=== PATIENT | female | born 1940 | race Caucasian/White ===

== ENCOUNTER 2022-06-24 20:06 | Inpatient (IN) | payer MEDICARE ==
[~2022-06-24] VITALS: Ht 157.5 cm; Wt 73.0 kg
--- NOTE | 2022-06-24 20:30 | NUR ---
TO ER BED 2. [id number]. L KNEE PAIN S/P TRIP AND FELL. RR EVEN AND NONLABORED. CONNECTED TO MONITOR. AWAITING MD VILLANUEVA
--- NOTE | 2022-06-24 22:07 | NUR ---
TOWER OPERATOR AT PT'S BEDSIDE
--- NOTE | 2022-06-24 22:10 | NUR ---
IV LINE ESTABLISHED, [id number]
--- NOTE | 2022-06-24 22:10 | NUR ---
BLOOD COLLECTED AND SENT TO LAB
--- NOTE | 2022-06-24 22:11 | NUR ---
COVID SWAB COLLECTED
[2022-06-24 22:22] LABS: BASOPHILS % (AUTO) 0.1 % (0.0-2.0); EOSINOPHILS % (AUTO) 0.4 % (0.0-6.0); HEMATOCRIT 42 % (33-45); HEMOGLOBIN 14.1 g/dL (11.5-14.8); LYMPHOCYTES # (AUTO) 1.4 K/uL (0.8-4.8); LYMPHOCYTES % (AUTO) 9.1 % (20.0-44.0); MEAN CORPUSCULAR HGB CONC 34 g/dl (31.0-36.0); MEAN CORPUSCULAR VOLUME 87 fL (82-100); MONOCYTES # (AUTO) 1.3 K/uL (0.1-1.30); MONOCYTES % (AUTO) 8.4 % (2.0-12.0); NEUTROPHILS # (AUTO) 12.9 K/uL (1.8-8.9); PLATELET COUNT (AUTO) 284 K/uL (150-450); RED BLOOD CELL COUNT(AUTO) 4.83 MIL/uL (4.0-5.2); WHITE BLOOD COUNT (AUTO) 15.7 K/uL (4.3-11.0)
[2022-06-24 22:46] LABS: CREATININE 0.9 mg/dL (0.6-1.3); POTASSIUM 3.1 mmol/L (3.5-5.1)
--- NOTE | 2022-06-24 23:18 | NUR ---
PT SEEN BY LEIF GREEN NP
[2022-06-24] MEDS ORDERED: ONDANSETRON HCL/PF 4 MG/2 ML VIAL IVP PRN (23:30)
[2022-06-24] MEDS ORDERED: Z GUARD REMEDY 4 OZ OINT TP PRN (23:30)
[2022-06-24] MEDS ORDERED: POTASSIUM CHLORIDE 20 MEQ TAB.PRT.SR PO ONE (23:30)
[2022-06-24] MEDS ORDERED: MAG HYDROX/AL HYDROX/SIMETH 30 ML UDC PO PRN (23:30)
[2022-06-24] MEDS ORDERED: HYDROCODONE/APAP 5/325MG TABLET PO PRN (23:30)
[2022-06-24] MEDS ORDERED: MORPHINE SULFATE INJ 2 MG/ML DISP.SYRIN IV PRN (23:30)
[2022-06-24] MEDS ORDERED: MAGNESIUM HYDROXIDE 30 ML UDC PO PRN (23:30)
[2022-06-24] MEDS ORDERED: ACETAMINOPHEN 325 MG TABLET PO PRN (23:30)
[2022-06-25] MEDS ORDERED: POTASSIUM CHLORIDE 20 MEQ TAB.PRT.SR PO ONE ×2 (00:26→22:42)
[2022-06-25] MEDS ORDERED: VANCOMYCIN 1 GM VIAL ONE (00:26)
[2022-06-25] MEDS ORDERED: ENOXAPARIN SODIUM 40 MG/0.4 ML DISP.SYRIN SQ ONE (00:26)
[2022-06-25] MEDS ORDERED: MORPHINE SULFATE INJ 2 MG/ML DISP.SYRIN ONE (00:26)
[2022-06-25] MEDS: ENOXAPARIN SODIUM 40 MG/0.4 ML DISP.SYRIN SQ SCH ×2 (00:55→21:01)
[2022-06-25] MEDS ORDERED: VANCOMYCIN 1.25 GM in IV D5W 250 ML IV ONE (01:00)
--- NOTE | 2022-06-25 02:08 | NUR ---
REPORT GIVEN TO SUMEET SCHNEIDER FOR JAN
[2022-06-25 03:15] VITALS: BP 139/88
--- NOTE | 2022-06-25 03:15 | NUR ---
MS RN OPENING NOTE RECEIVED PATIENT FROM ER VIA GURNEY. PATIENT IS AWAKE, ALERT AND ORIENTED X 4, VERBALLY RESPONSIVE. VITAL SIGNS TAKEN AND RECORDED FOLLOWS: T 98.3, AR 104, RR 18, O2 SAT 96%, BP 139/88 MM HG. BREATHING EVEN AND NONLABORED. ON ROOM AIR; TOLERATING WELL. IN NO ACUTE DISTRESS. WITH IV ACCESS ON RIGHT ANTECUBITAL 20g: PATENT, INTACT AND SALINE LOCKED. ABLE TO MAKE NEEDS KNOWN. ALL PERSONAL BELONGINGS CHECKED AND INVENTORY DONE. ORIENTED TO STAFF, ROOM AND UNIT. SAFETY MEASURES IMPLEMENTED: CALL LIGHT AND TABLE WITHIN REACH, SIDE RAILS UP X 2, BED IN LOWEST LOCKED POSITION. WILL CONTINUE TO MONITOR
--- NOTE | 2022-06-25 03:34 | NUR ---
RN NOTE PATIENT C/O PAIN ON LEFT KNEE WITH PAIN SCALE 10/10. PRN MORPHINE 1 MG GIVEN IVP ORDERED. WILL CONTINUE TO MONITOR AND REASSESS PT.
--- NOTE | 2022-06-25 07:10 | NUR ---
MS RN CLOSING NOTE PATIENT IN BED; AWAKE, A/O X 4, VERBALLY RESPONSIVE. BREATHING EVEN AND NONLABORED. ON ROOM AIR; WELL TOLERATED. IN NO APPARENT DISTRESS. WITH IV ACCESS ON RIGHT AC 20g: PATENT, INTACT AND SALINE LOCKED. ALL NEEDS ATTENDED. ALL DUE MED GIVEN ORDERED. SAFETY MEASURES MAINTAINED: CALL LIGHT AND TABLE WITHIN REACH, SIDE RAILS UP X 2, BED IN LOWEST LOCKED POSITION. ENDORSED TO MORNING SHIFT FOR JAN.
--- NOTE | 2022-06-25 07:20 | NUR ---
MS RN OPENING NOTES: RECEIVED PT IN BED AWAKE, ALERT AND ORIENTED X 4 AND ABLE TO VERBALIZED NEEDS. PT VERBALIZED BEING ANXIOUS FOR NOT DOING ANYTHING. NO SOB OR CARDIAC DISTRESS NOTED, DENIES ANY PAIN AT THIS TIME. IV ACCESS ON RAC G 20 PATENT INTACT AND SALINE LOCKED. SAFETY PRECAUTIONS MAINTAINED: BED LOCKED AND IN LOWEST POSITION. SIDE RAILS UP X 2. CALL LIGHT IN EASY REACH FOR HELP. WILL MONITOR PT ACCORDINGLY.
[2022-06-25 08:00] VITALS: BP 143/71
[2022-06-25] MEDS ORDERED: AMPI500C11 PO (08:35)
[2022-06-25] MEDS ORDERED: FAMO20TA8 PO (08:35)
[2022-06-25] MEDS ORDERED: CIPR500T5 PO (08:35)
[2022-06-25] MEDS ORDERED: AMLO2.5T4 PO (08:35)
[2022-06-25] MEDS ORDERED: ALLO100T PO (08:35)
[2022-06-25] MEDS ORDERED: MULT-1181 PO (08:36)
[2022-06-25] MEDS ORDERED: HYDR-3976 PO (08:36)
[2022-06-25] MEDS ORDERED: INUL1TAB4 PO (08:36)
[2022-06-25] MEDS: PANTOPRAZOLE 40 MG TABLET.DR PO SCH (08:44)
[2022-06-25 09:10] LABS: BASOPHILS % (AUTO) 0.2 % (0.0-2.0); EOSINOPHILS % (AUTO) 0.1 % (0.0-6.0); HEMATOCRIT 41 % (33-45); HEMOGLOBIN 13.6 g/dL (11.5-14.8); LYMPHOCYTES # (AUTO) 0.8 K/uL (0.8-4.8); LYMPHOCYTES % (AUTO) 6.4 % (20.0-44.0); MEAN CORPUSCULAR HGB CONC 33 g/dl (31.0-36.0); MEAN CORPUSCULAR VOLUME 88 fL (82-100); MONOCYTES # (AUTO) 1.3 K/uL (0.1-1.30); MONOCYTES % (AUTO) 10.2 % (2.0-12.0); NEUTROPHILS # (AUTO) 10.4 K/uL (1.8-8.9); NEUTROPHILS % (AUTO) 83.1 % (43.0-81.0); PLATELET COUNT (AUTO) 278 K/uL (150-450); RED BLOOD CELL COUNT(AUTO) 4.69 MIL/uL (4.0-5.2); WHITE BLOOD COUNT (AUTO) 12.5 K/uL (4.3-11.0)
[2022-06-25 09:50] LABS: CALCIUM, SERUM 8.6 mg/dL (8.5-10.1); CARBON DIOXIDE 29 mmol/L (21-32); CHLORIDE 104 mmol/L (98-107); CREATININE 0.7 mg/dL (0.6-1.3); GLUCOSE 130 mg/dL (74-106); PHOSPHORUS 3.1 mg/dL (2.5-4.9); SODIUM SERUM 141 mmol/L (136-145); UREA NITROGEN, BLOOD 8 mg/dL (7-18)
[2022-06-25 09:59] LABS: THYROID STIMULATING HORMONE 1.086 uIU/mL (0.358-3.74)
--- NOTE | 2022-06-25 10:00 | NUR ---
RN NOTES: INFORMED PHARMACY ABOUT CRITICAL LABS 3.0 POTASSIUM.
--- NOTE | 2022-06-25 14:09 | NUR ---
RN NOTES: DR COLEY ORDERED IV NS @60ML/HR AND REPEAT LACTIC ACID IN AM. ORDERS NOTED AND CARRIED OUT.
[2022-06-25 16:00] VITALS: BP 126/66
--- NOTE | 2022-06-25 18:40 | NUR ---
RN NOTES: CALLED PHARMACY PT'S POTASSIUM LEVEL 3.0, SPOKE TO ABEL 2ND TIME.
--- NOTE | 2022-06-25 18:48 | NUR ---
MS RN CLOSING NOTES: PATIENT IN BED AWAKE, ALERT AND ORIENTED X 4 AND ABLE TO VERBALIZED NEEDS. NO SOB OR CARDIAC DISTRESS NOTED, ON ROOM AIR AND TOLERATING WELL. IV ACCESS ON RFA G 20 PATENT,INTACT AND SALINE LOCKED. PT DENIES PAIN AT THIS TIME. SAFETY PRECAUTIONS MAINTAINED: BED LOCKED AND IN LOWEST POSITION. SIDE RAILS UP X 2 AND CALL LIGHT WITHIN EASY REACH FOR HELP.ENDORSED TO NOC SHIFT FOR JAN.
--- NOTE | 2022-06-25 19:20 | NUR ---
MS RN OPENING NOTES RECEIVED PT IN BED AWAKE. PT ALERT AND ORIENTED X 4, ABLE TO VERBALIZED NEEDS. NO SOB OR CARDIAC DISTRESS NOTED. PT DENIES ANY PAIN, OR DISCOMFORT AT THIS TIME. IV ACCESS ON RAC G 20 PATENT INTACT AND SALINE LOCKED. SAFETY PRECAUTIONS MAINTAINED: BED LOCKED AND IN LOWEST POSITION. SIDE RAILS UP X 2. CALL LIGHT WITHIN REACH. WILL CONTINUE TO MONITOR PT.
[2022-06-25 20:00] VITALS: BP 120/75
[2022-06-25] MEDS: POTASSIUM CHLORIDE 20 MEQ TAB.PRT.SR PO SCH ×3 (20:42→22:43)
--- NOTE | 2022-06-25 21:40 | NUR ---
MS RN NOTE PT HAS 1 EPISODE OF N/V. ZOFRAN IS ADMINISTERED TO PT.
[2022-06-26] MEDS: VANCOMYCIN 1.25 GM in IV D5W 250 ML IV SCH (00:29)
--- NOTE | 2022-06-26 06:57 | NUR ---
MS RN CLOSING NOTE LEFT PATIENT SLEEPING IN BED, A/O X 4, VERBALLY RESPONSIVE. BREATHING EVEN AND NONLABORED. ON ROOM AIR, TOLERATING RA WELL. IN NO APPARENT DISTRESS. WITH IV ACCESS TO RIGHT AC 20g: PATENT, INTACT AND SALINE LOCKED. ALL NEEDS ATTENDED. ALL MEDS GIVEN ORDERED. SAFETY MEASURES MAINTAINED: CALL LIGHT AND BED SIDE TABLE WITHIN REACH, SIDE RAILS UP X 2, BED IN LOWEST LOCKED POSITION. WILL ENDORSE TO MORNING SHIFT NURSE FOR JAN.
[2022-06-26 07:00] VITALS: BP 128/61
--- NOTE | 2022-06-26 07:30 | NUR ---
RN Receiving Report Patient AOx 4, able to confirm name and date of . Patient shows no signs of distress or discomfort, states she is in no pain. Patient states she is ready to discharge to a nursing facility, patient made aware of d/c plan is . Introduced my self to the patient , oriented her and discussed plan of care, patient verbalized agreement. All safety precautions taken, call light and table within reach, bed at lowest position. Will continue to monitor throughout shift.
[2022-06-26] MEDS: PANTOPRAZOLE 40 MG TABLET.DR PO SCH (07:52)
--- NOTE | 2022-06-26 08:22 | NUR ---
WOUND CARE CONSULT: PT SEEN FOR SKIN ASSESSMENT AND NOTED TO HAVE SOME PERINEAL REDNESS AND REDNESS/SWELLING TO LEFT KNEE, PRESENT ON ADMISSION. RECOMMENDATIONS MADE FOR SKIN PROTECTION. DISCUSSED WITH NURSING STAFF. MD IN AGREEMENT WITH PLAN OF CARE.
[2022-06-26 11:34] LABS: BASOPHILS # (AUTO) 0.1 K/uL (0.0-0.2); BASOPHILS % (AUTO) 0.7 % (0.0-2.0); EOSINOPHILS % (AUTO) 0.4 % (0.0-6.0); HEMATOCRIT 40 % (33-45); HEMOGLOBIN 13.1 g/dL (11.5-14.8); LYMPHOCYTES # (AUTO) 1.1 K/uL (0.8-4.8); LYMPHOCYTES % (AUTO) 9.6 % (20.0-44.0); MEAN CORPUSCULAR HGB CONC 33 g/dl (31.0-36.0); MEAN CORPUSCULAR VOLUME 88 fL (82-100); MONOCYTES # (AUTO) 1.2 K/uL (0.1-1.30); MONOCYTES % (AUTO) 10.5 % (2.0-12.0); NEUTROPHILS # (AUTO) 8.8 K/uL (1.8-8.9); NEUTROPHILS % (AUTO) 78.8 % (43.0-81.0); PLATELET COUNT (AUTO) 267 K/uL (150-450); RED BLOOD CELL COUNT(AUTO) 4.55 MIL/uL (4.0-5.2); WHITE BLOOD COUNT (AUTO) 11.1 K/uL (4.3-11.0)
[2022-06-26 11:59] LABS: ALBUMIN 2.8 g/dL (3.4-5.0); BILIRUBIN,TOTAL 0.4 mg/dL (0.2-1.0); CALCIUM, SERUM 8.8 mg/dL (8.5-10.1); CREATININE 0.9 mg/dL (0.6-1.3); MAGNESIUM 2.2 mg/dL (1.8-2.4); PHOSPHORUS 2.7 mg/dL (2.5-4.9); POTASSIUM 3.3 mmol/L (3.5-5.1)
[2022-06-26 16:00] VITALS: BP 124/73
--- NOTE | 2022-06-26 18:07 | NUR ---
RN Closing Note Patient AOx4, remained safe throughout shift. Patient called multiple times for bedpan and other needs. Attended to patient as needed and provided care. Administered medications as prescribed. IV remained in place and intact, no signs of infiltration. All safety precautions taken, call light and table within reach and bed at lowest position.
--- NOTE | 2022-06-26 19:20 | NUR ---
noc rn opening note received patient in bed, a/ox4. no s/s of apparent distress on room air. denies pain at this time. rt. ac #20g on saline lock. purewick noted to be raining clear, dark yellow urine. call light within reach, oriented and encouraged with the use of call light. safety in place. will continue with plan of care for patient.
[2022-06-26 20:00] VITALS: BP 135/65
[2022-06-26] MEDS: ENOXAPARIN SODIUM 40 MG/0.4 ML DISP.SYRIN SQ SCH (21:00)
[2022-06-27] MEDS: VANCOMYCIN 1.25 GM in IV D5W 250 ML IV SCH (01:00)
[2022-06-27 06:15] LABS: CALCIUM, SERUM 8.6 mg/dL (8.5-10.1); CREATININE 0.9 mg/dL (0.6-1.3); POTASSIUM 3.2 mmol/L (3.5-5.1)
--- NOTE | 2022-06-27 07:21 | NUR ---
noc rn closing report given to Nalini for continuity of patient care.
--- NOTE | 2022-06-27 07:30 | NUR ---
RN Receiving Report Patient AOx 4, able to confirm name and date of . Patient shows no signs of distress or discomfort, states she is in no pain. Patient states she is ready to discharge to a nursing facility, would like to leave in the morning since she believes in the evening the accepting facility is not as organized, will follow up with accepting facility. patient made aware of d/c plan is . Introduced my self to the patient , oriented her and discussed plan of care, patient verbalized agreement. All safety precautions taken, call light and table within reach, bed at lowest position. Will continue to monitor throughout shift.
[2022-06-27] MEDS: PANTOPRAZOLE 40 MG TABLET.DR PO SCH (07:59)
[2022-06-27] MEDS ORDERED: POTASSIUM CHLORIDE 20 MEQ TAB.PRT.SR PO SCH (10:00)
--- NOTE | 2022-06-27 10:15 | NUR ---
regulatory affairs specialist Note Patient AOx4, transportation company is her to transfer patient to [facility], per patients request. [employer], [id number], run #[id number], provided report to Ani. Called facility [facility] [phone] and provided report. Patient to continue Vanco IV until 07/03 per physicians orders. All safety precautions taken, patient left facility safe and stable, no incidents to report.
== END 2022-06-27 10:49 | DRG 550 ==
LOC: ER 20:07 → TRANSITION 06-25 00:03 → MED 06-25 02:14
PROVIDERS: ADMIT Registered Nurse
DX: M00.9 Pyogenic arthritis, unspecified (principal); M25.462 Effusion, left knee; W01.0XXA Fall on same level from slipping, tripping and stumbling without subsequent striking against object, initial encounter; Z20.822 Contact with and (suspected) exposure to COVID-19; Z96.651 Presence of right artificial knee joint; Y92.009 Unspecified place in unspecified non-institutional (private) residence as the place of occurrence of the external cause; I10 Essential (primary) hypertension; Z91.018 Allergy to other foods; R26.9 Unspecified abnormalities of gait and mobility; E66.9 Obesity, unspecified; Z68.29 Body mass index [BMI] 29.0-29.9, adult
CPT/HCPCS: 36415; 73564-TC; 73610-TC; 73700-TC; 80048-TC; 80053-TC; 83735-TC; 84100-TC; 84443-TC; 85025-TC; 87040-TC; 87081-TC; 97530-TC; C9803; G0378; J1650; J2270; J2405; J3370; J7050; J7060

== ENCOUNTER 2022-07-31 10:21 | Emergency (ER) | payer MEDICARE ==
[~2022-07-31] VITALS: Ht 157.5 cm; Wt 72.6 kg
[~2022-07-31 10:21] MED LIST: ALLO100T PO; AMLO2.5T4 PO; AMPI500C11 PO; CIPR500T5 PO; FAMO20TA8 PO; HYDR-3976 PO; INUL1TAB4 PO; MULT-1181 PO
[2022-07-31 10:33] VITALS: BP 143/74
[2022-07-31] MEDS ORDERED: BENZ-13 PO (14:23)
--- NOTE | 2022-07-31 14:31 | NUR ---
Patient discharged to home in stable condition. Written and verbal after care instructions given. Patient verbalizes understanding of instruction.
== END 2022-07-31 14:32 | disposition home or self-care (01) ==
LOC: ER 10:23
DX: U07.1 COVID-19 (principal); I10 Essential (primary) hypertension; Z96.651 Presence of right artificial knee joint; Z91.018 Allergy to other foods
CPT/HCPCS: 71045-TC